=== PATIENT | female | born 1995 | race Caucasian/White ===

== ENCOUNTER 2017-08-21 16:42 | Emergency (ER) | payer OTHER ==
[~2017-08-21] VITALS: Ht 154.9 cm; Wt 71.2 kg
[2017-08-21 17:20] VITALS: Ht 154.9 cm; Wt 71.2 kg
[2017-08-21 19:39] VITALS: BP 112/70
== END 2017-08-21 19:39 | disposition home or self-care (01) ==
LOC: ED 16:42
DX: S91.331A Puncture wound without foreign body, right foot, initial encounter (principal); X58.XXXA Exposure to other specified factors, initial encounter; Y93.89 Activity, other specified; Y92.89 Other specified places as the place of occurrence of the external cause; Y99.8 Other external cause status
CPT/HCPCS: 90715

== ENCOUNTER 2018-11-13 16:13 | Emergency (ER) | payer OTHER ==
[~2018-11-13] VITALS: Ht 154.9 cm; Wt 65.8 kg
[2018-11-13 16:14] VITALS: Ht 154.9 cm; Wt 65.8 kg
[2018-11-13 18:30] VITALS: BP 105/60
== END 2018-11-13 18:30 | disposition home or self-care (01) ==
LOC: ED 16:13
DX: S80.12XA Contusion of left lower leg, initial encounter (principal); Z91.041 Radiographic dye allergy status; X58.XXXA Exposure to other specified factors, initial encounter; Y93.89 Activity, other specified; Y92.89 Other specified places as the place of occurrence of the external cause; Y99.8 Other external cause status

== ENCOUNTER 2019-05-21 05:05 | Emergency (ER) | payer OTHER ==
[~2019-05-21] VITALS: Ht 154.9 cm; Wt 76.7 kg
[2019-05-21 05:11] VITALS: Ht 154.9 cm; Wt 76.7 kg
[2019-05-21 07:54] LABS: PLATELET COUNT 146 x10^3mcL (130-400); RED CELL DISTRIBUTION WIDTH 13.4 % (11.5-14.5)
[2019-05-21 07:56] LABS: BASOPHIL % 0 % (0-2)
[2019-05-21 08:21] LABS: ALBUMIN 4.2 g/dL (3.4-5.0); ALKALINE PHOSPHATASE 105 U/L (46-116); ALT/SGPT 75 U/L (14-59); AST/SGOT 43 U/L (15-37); BILIRUBIN TOTAL 0.22 mg/dL (0.20-1.00); CALCIUM 8.9 mg/dL (8.5-10.1); CARBON DIOXIDE 25.3 mmol/L (21-32); CHLORIDE SERUM 102 mmol/L (98-107); CREATININE SERUM 0.7 mg/dL (0.6-1.0); GFR1 > 60 mL/min; GLUCOSE SERUM 118 mg/dL (74-106); POTASSIUM SERUM 3.9 mmol/L (3.5-5.1); SODIUM SERUM 135 mmol/L (136-145)
[2019-05-21 08:22] LABS: TOTAL PROTEIN, SERUM 8.3 g/dL (6.4-8.2)
[2019-05-21 09:37] LABS: T3 TOTAL 1.28 ng/mL
[2019-05-21 10:20] VITALS: BP 118/71
[2019-05-21 10:43] LABS: FREE T4 0.85 ng/dL (0.76-1.46); T4(THYROXINE) 7.8 ug/dL (4.7-13.3)
[2019-05-21 11:02] LABS: FREE THYROXINE INDEX 2.8 ug/dL (1.4-4.5)
== END 2019-05-21 10:20 | disposition home or self-care (01) ==
LOC: ED 05:05
PROVIDERS: Specialist
DX: B34.9 Viral infection, unspecified (principal); E86.0 Dehydration; Z91.041 Radiographic dye allergy status
CPT/HCPCS: 84439; 87804; J7030; Q0092